=== PATIENT | female | born 1960 | race Caucasian/White ===

== ENCOUNTER 2020-11-26 11:52 | Emergency (ER) | payer OTHER, SELFPAY ==
--- NOTE | 2020-11-26 12:04 | ED.URI ---
HPI - URI/Sore Throat General Chief Complaint: Upper Respiratory Infection Stated Complaint: upper respiratory infection Time Seen by Provider: 11/26/20 12:04 Source: patient and RN notes reviewed Mode of arrival: ambulatory Limitations: no limitations History of Present Illness HPI Narrative: 60-year-old female with history of sinus surgeries presents concern for 1 week history of nasal congestion, drainage. Reports since yesterday she has been having right-sided facial pain with foul tasting postnasal drainage. She reports headache, fatigue, ringing in the right ear. She denies cough, shortness of breath, sore throat, body aches, chills, sweats, fever. Denies any known sick contacts. MD elicited complaint: nasal congestion Related Data Home Medications Medication Instructions Recorded Confirmed alprazolam mg PO 11/26/20 bupropion HCl mg PO 11/26/20 vortioxetine [Trintellix] mg 11/26/20 Allergies Allergy/AdvReac Type Severity Reaction Status Date / Time morphine Allergy Mild Verified 08/16/10 16:17 peanut Allergy Unknown TINGLING Verified 09/09/18 16:38 IN MOUTH/DIARRHEA Review of Systems Review of Systems: Narrative: CONSTITUTIONAL: Reports malaise. Denies chills, sweats, or fever. EYES: Denies visual changes, redness, or discharge. ENT: Reports rhinorrhea, congestion, right-sided sinus pain. Denies otalgia and sore throat. CARDIOVASCULAR: Denies chest pain, palpitations, or edema. RESPIRATORY: Denies cough or dyspnea. GASTROINTESTINAL: Denies abdominal pain, nausea, vomiting, diarrhea SKIN: Denies rash or itching. MUSCULOSKELETAL: Denies myalgia. NEUROLOGIC: Reports headache. All systems reviewed & are unremarkable except as noted in HPI and below PMFSH Comments At time of signature, agree with nursing past medical, surgical, social and family history. There is no relevant family history pertinent to the presenting complaint Exam Narrative: Exam Narrative: GENERAL: Well-appearing, well-nourished, and in no acute distress. HEAD: Normocephalic EYES: PERRLA, conjunctivae clear ENT: Nares clear, turbinates edematous and erythematous, purulent discharge, right-sided sinus tenderness. Mucous membranes moist. TM pearly jorge with dull light reflex bilaterally; no tragal tenderness. Oropharynx not erythematous without lesions. Tonsils not enlarged and without exudate, no drooling, no hoarseness, no trismus, uvula midline. NECK: Supple. No lymphadenopathy CHEST: Clear to auscultation, breath sounds equal. No wheezing, rhonchi, rales, or stridor. No respiratory distress, speaks in full sentences. HEART: Regular rate and rhythm. No murmur heard. SKIN: Warm, dry, no rash. NEURO: Alert and oriented x3. PSYCH: Normal mood and affect Course Course Emergency Course: Patient is aware of diagnosis, understands and agrees to treatment plan. Anticipatory guidance given. Patient agrees to follow-up as directed and is aware of reasons to seek care at the emergency department. Portions of this record may have been created with voice recognition software Vital Signs Vital signs: Vital Signs Temperature 98 F 11/26/20 12:06 Pulse Rate 75 11/26/20 12:06 Respiratory Rate 16 11/26/20 12:06 Blood Pressure 150/85 H 11/26/20 12:06 Pulse Oximetry 98 11/26/20 12:06 Temperature 98 F 11/26/20 12:06 Pulse Rate 75 11/26/20 12:06 Respiratory Rate 16 11/26/20 12:06 Blood Pressure 150/85 H 11/26/20 12:06 Pulse Oximetry 98 11/26/20 12:06 Reviewed. MDM - URI/Sore Throat MDM Narrative Medical decision making narrative: Differential diagnosis considered: Ramirez virus, strep pharyngitis, allergic rhinitis, upper respiratory tract infection, sinusitis, rhinosinusitis, nasopharyngitis. viral pharyngitis, otitis media, otitis externa, pneumonia, bronchitis, viral cough syndrome, viral syndrome, and influenza. Exam findings show no acute concerns or changes; patient is non-toxic appearing and is in no di
[2020-11-26 12:06] VITALS: BP 150/85; PULSE 75; RESP 16; TEMP 36.6; O2SAT 98
== END 2020-11-26 12:18 | disposition home or self-care (01) ==
PROVIDERS: Emergency Provider Nurse Practitioner
DX: J01.90 Acute sinusitis, unspecified (principal)
CPT/HCPCS: 99213; G0463